=== PATIENT | male | born 1960 | race Two or more races ===

== ENCOUNTER 2017-03-04 19:27 | Emergency (ER) | payer OTHER ==
[~2017-03-04] VITALS: Ht 160 cm; Wt 72.2 kg
[2017-03-04 20:23] LABS: HEMATOCRIT 42.5 % (38.0-50.0); MCH 28.7 PG (29.0-34.0); MCHC 34.8 G/DL (30.0-36.0); MCV 82.4 FL (86-99); MEAN PLAT.VOLUME 9.6 uM^3 (9.0-12.4); PLATELET COUNT 275 K/uL (156-360); RBC DIS.WIDTH-CV 13.6 % (11.8-14.6); RBC DIS.WIDTH-SD 40.1 % (39-53); RED BLOOD COUNT 5.16 M/uL (4.00-5.50); WHITE BLOOD COUNT 7.7 K/uL (4.1-10.2)
[2017-03-04 20:31] LABS: CHLORIDE 105 mEq/L (99-109); POTASSIUM 3.5 mEq/L (3.7-5.4); SODIUM 137 mEq/L (136-147)
[2017-03-04 20:33] LABS: GLUCOSE 131 mg/dL (70-99)
[2017-03-04 20:34] LABS: ANION GAP 8 MEQ/L (2-14)
[2017-03-04 20:37] LABS: GFR ESTIMATE (CALCULATED) > 59 mL/min/
[2017-03-04 20:38] LABS: UREA NITROGEN (BUN) 16 mg/dL (9-23)
[2017-03-04] MEDS ORDERED: KEFLEX500 MG PO ×2 (21:53→22:04)
[2017-03-04 21:58] VITALS: BP 162/119
== END 2017-03-04 22:05 | disposition home or self-care (01) ==
LOC: EME 19:27
PROVIDERS: Physician Assistant
DX: L03.115 Cellulitis of right lower limb (principal); I10 Essential (primary) hypertension; Z91.14 Patient's other noncompliance with medication regimen; F17.200 Nicotine dependence, unspecified, uncomplicated
CPT/HCPCS: 80048; 85027; 93971; 99281; 99283